=== PATIENT | female | born 2000 | race Caucasian/White ===

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

== ENCOUNTER 2022-03-22 09:50 | Inpatient (IN) | payer BC ==
[~2022-03-22] VITALS: Ht 172.7 cm; Wt 82.6 kg
[2022-03-22 10:24] LABS: BASOPHILS % 0.1 % (0.0-1.0); EOSINOPHILS # (AUTO) 0.1 (0.0-0.4); EOSINOPHILS % 1.6 % (0.0-6.0); HEMATOCRIT 45.4 % (34.2-44.1); LYMPHOCYTES # (AUTO) 1.3 (1.0-3.2); LYMPHOCYTES % 16.2 % (18.0-39.1); MEAN CORPUSCULAR HEMOGLOBIN 27.6 pg (28-32); MEAN CORPUSCULAR HGB CONC 30.8 g/dL (31-35); MEAN CORPUSCULAR VOLUME 89.4 fL (81-99); MONOCYTES # (AUTO) 0.4 (0.2-0.8); MONOCYTES % 4.7 % (4.4-11.3); NEUTROPHILS # (AUTO) 5.9 (2.1-6.9); NEUTROPHILS % 76.9 % (38.7-80.0); PLATELET COUNT 219 x10e3/uL (140-360); RED BLOOD COUNT 5.08 x10e6/uL (3.6-5.1); RED CELL DISTRIBUTION WIDTH 12.5 % (11.7-14.4)
[2022-03-22 10:46] LABS: ALBUMIN 3.2 g/dL (3.5-5.0); ALBUMIN/GLOBULIN RATIO 0.7 (0.8-2.0); ANION GAP 14.8 mmol/L (8-16); CALCIUM 8.7 mg/dL (8.4-10.2); CREATININE, SERUM 0.74 mg/dL (0.57-1.11); POTASSIUM 3.8 mmol/L (3.5-5.1)
[2022-03-22] MEDS ORDERED: IOPAMIDOL 370 MG/ML 100 ML INFUS..BTL INJ ONE (11:22)
[2022-03-22] MEDS: ENOXAPARIN INJ 80 MG/0.8 ML SYR SC SCH (12:52)
[2022-03-22 14:34] VITALS: BP 114/83
[2022-03-22 14:45] VITALS: BP 114/83
[2022-03-22 14:54] VITALS: BP 114/83
[2022-03-22] MEDS: TRAMADOL/APAP 37.5MG-325MG TAB PO PRN ×2 (16:38→23:58)
[2022-03-22 16:43] VITALS: BP 119/79
[2022-03-22 20:00] VITALS: BP 114/78
[2022-03-22 21:00] VITALS: BP 114/78
[2022-03-22] MEDS ORDERED: TEMAZEPAM 15 MG CAP PO PRN (21:00)
[2022-03-23] VITALS: BP 114/78
[2022-03-23] MEDS: ENOXAPARIN INJ 80 MG/0.8 ML SYR SC SCH ×2 (01:04→12:36)
[2022-03-23 04:00] VITALS: BP 114/81
[2022-03-23] MEDS: TRAMADOL/APAP 37.5MG-325MG TAB PO PRN ×2 (06:03→19:39)
[2022-03-23] MEDS ORDERED: ONDANSETRON HCL INJ 2MG/ML 2ML 2 MG/ML VIAL IV PRN (08:45)
[2022-03-23] MEDS ORDERED: KETOROLAC TROMETHAMINE 30 MG/ML VIAL IV PRN (08:45)
[2022-03-23 09:00] VITALS: BP 109/67
[2022-03-23 12:04] LABS: ALBUMIN 3.1 g/dL (3.5-5.0); ALBUMIN/GLOBULIN RATIO 0.8 (0.8-2.0); ANION GAP 12.5 mmol/L (8-16); CREATININE, SERUM 0.74 mg/dL (0.57-1.11); POTASSIUM 4.5 mmol/L (3.5-5.1)
[2022-03-23 20:15] VITALS: BP 109/67
[2022-03-23 21:19] VITALS: BP 121/70
[2022-03-24] MEDS: ENOXAPARIN INJ 80 MG/0.8 ML SYR SC SCH (00:43)
[2022-03-24 01:00] VITALS: BP 112/72
[2022-03-24] MEDS: TRAMADOL/APAP 37.5MG-325MG TAB PO PRN (05:04)
[2022-03-24 05:43] VITALS: BP 108/68
[2022-03-24 05:54] LABS: BASOPHILS % 0.4 % (0.0-1.0); EOSINOPHILS # (AUTO) 0.1 (0.0-0.4); EOSINOPHILS % 0.6 % (0.0-6.0); HEMATOCRIT 39.2 % (34.2-44.1); HEMOGLOBIN 12.3 g/dL (12.0-16.0); LYMPHOCYTES # (AUTO) 1.7 (1.0-3.2); LYMPHOCYTES % 21.2 % (18.0-39.1); MEAN CORPUSCULAR HEMOGLOBIN 27.6 pg (28-32); MEAN CORPUSCULAR HGB CONC 31.4 g/dL (31-35); MEAN CORPUSCULAR VOLUME 88.1 fL (81-99); MONOCYTES # (AUTO) 0.6 (0.2-0.8); MONOCYTES % 7.1 % (4.4-11.3); NEUTROPHILS # (AUTO) 5.5 (2.1-6.9); NEUTROPHILS % 70.2 % (38.7-80.0); PLATELET COUNT 224 x10e3/uL (140-360); RED BLOOD COUNT 4.45 x10e6/uL (3.6-5.1); RED CELL DISTRIBUTION WIDTH 12.5 % (11.7-14.4)
[2022-03-24 08:05] VITALS: BP 110/76
[2022-03-24 08:30] VITALS: BP 110/76
[2022-03-24] MEDS ORDERED: ELIQUIS5 MG PO (10:17)
[2022-03-24] MEDS ORDERED: KETOROLAC TROME10 MG PO (10:17)
== END 2022-03-24 11:15 | disposition home or self-care (01) | DRG 176 ==
LOC: ER 09:55 → ERHOLD 12:42 → MED/SURG3 14:35
DX: I26.99 Other pulmonary embolism without acute cor pulmonale (principal); R79.1 Abnormal coagulation profile; Z84.89 Family history of other specified conditions; Z20.822 Contact with and (suspected) exposure to COVID-19; Z79.3 Long term (current) use of hormonal contraceptives
CPT/HCPCS: 36415; 71260; 80053; 81241; 81400; 84702; 85025; 85303; 85306; 85379; 85597; 85613; 85730; 86146; 93005; 93970; 99251; 99284; J1650; J1885; J2405; Q9967